=== PATIENT | male | born 1935 | race Caucasian/White ===

== ENCOUNTER → 2024-12-29 09:05 | Outpatient (REF) | payer MEDICARE, SELFPAY ==
[2024-12-29 10:00] LABS: Hematocrit 39.7 % (39.0-52.0); Hemoglobin 13.1 g/dL (13.0-18.0); Mean Corp Hgb Conc. 33.0 g/dL (33.0-37.0); Mean Corpuscular Volume 89.6 fL (80.0-94.0); Nucleated Red Blood Cells % 0 % (-); Platelet Count 220 10^3/uL (130-400); Red Cell Dist. Width 15.1 % (11.5-14.5)
[2024-12-29 10:17] LABS: Urine Character Clear (Clear)
[2024-12-29 10:35] LABS: ALT (SGPT) 14 U/L (0-50); AST (SGOT) 21 U/L (17-59); Albumin 4.5 g/dl (3.5-5.0); Alkaline Phosphatase 82 U/L (38-126); Blood Urea Nitrogen 18 mg/dl (9-20); Calcium 9.4 mg/dl (8.4-10.2); Carbon Dioxide 28 mmol/L (22-30); Chloride 107 mmol/L (98-107); Glucose 86 mg/dl (70-99); HDL Cholesterol 67 mg/dl; LDL Cholesterol, Calculated 51 mg/dl; Potassium 4.5 mmol/L (3.5-5.1); Sodium 142 mmol/L (135-145); Total Protein 7.9 g/dl (6.3-8.2); Very Low Density Lipoprotein 16 mg/dl (0-30); eGFR > 60.00
[2024-12-29 10:36] LABS: C-Reactive Protein 10.50 mg/L (0.0-10.00)
[2024-12-29 11:07] LABS: TSH 1.45 uIU/ml (0.47-4.68)
[2024-12-29 11:47] LABS: Urine Squamous Cell 16-20 /LPF (Few)
[2024-12-29 11:49] LABS: Urine White Cell 0-2 /HPF (0-5)
== END ==
LOC: REG 09:05
PROVIDERS: ATTENDING PHYSICIAN Internal Medicine
DX: E78.2 Mixed hyperlipidemia (principal); K57.90 Diverticulosis of intestine, part unspecified, without perforation or abscess without bleeding; R63.4 Abnormal weight loss; Z00.00 Encounter for general adult medical examination without abnormal findings; K12.0 Recurrent oral aphthae; R19.7 Diarrhea, unspecified
CPT/HCPCS: 36415; 80053; 80061; 81003; 81015; 84443; 85025; 86140

== ENCOUNTER → 2025-01-12 06:49 | Outpatient (REF) | payer MEDICARE, SELFPAY ==
[2025-01-12 07:43] LABS: Urine Character Clear (Clear)
== END ==
LOC: REG 06:49
PROVIDERS: ATTENDING PHYSICIAN Internal Medicine
DX: R63.4 Abnormal weight loss (principal); K57.90 Diverticulosis of intestine, part unspecified, without perforation or abscess without bleeding; E78.2 Mixed hyperlipidemia
CPT/HCPCS: 81003

== ENCOUNTER 2025-03-14 08:47 | Emergency (ER) | payer MEDICARE, SELFPAY ==
[2025-03-14 08:50] VITALS: BP 150/93
[2025-03-14 09:26] VITALS: BMI 17.4
--- NOTE | 2025-03-14 09:34 | EDRN ---
Dr. Garvin in room w/ pt at this time.
--- NOTE | 2025-03-14 09:47 | ED.GENMED ---
History of Present Illness
General
Chief Complaint: Fall
Source: patient
Time Seen by Provider: 03/14/25 09:06
History of Present Illness
History of Present Illness:
89-year-old male presents to the emergency room complaining of pain particular in the right knee after a fall. Patient had a fall 2 days ago. He moved into a new home which is a refurbished barn. He was unaware that he was taking a step down that
was quite significant and ended up losing his balance and falling. He has pain on the entire right side of his body which reminds him of when he would ski and have a white out. However his right knee is the primary area of concern today because it
is swollen and he cannot weight-bear without significant pain. He did not have any loss of consciousness in the fall. He does not have a headache at this point.
Past History
Past History
ED Past Medical History: Hypercholesterolemia
ED Past Surgical History: Other (Hernia repair)
Social History
Tobacco: Non-smoker
Alcohol: None
Personal:
Living: with family
Employment: Retired
Phy Exam
Physical Exam
Physical Exam:
General: Awake, Alert, Oriented X3. No acute distress.
Vitals: unremarkable
Head: Atraumatic
Eyes: Pupils equal, EOMI
Throat: Airway intact, no exudates
Neck: Trachea midline
Lungs: Clear and equal b/l
Heart: Regular rate, no murmurs
Abd: Soft, Nontender, No pulsatile mass
Neuro: No focal deficits
Skin: Warm, dry, no rash
Extremities: pulses equal b/l, there is significant swelling and ecchymosis of the right knee particular proximally. There is diffuse tenderness to palpation.
Course
Orders/Labs/Results
Orders:
Orders
03/14/25 09:38
Acetaminophen [Tylenol] 1,000 mg PO NOW STA
Knee, Right 4 or More Views [CR Knee- Right 4 Or More View*] Urgent
Comment:
Reason For Exam: pain/swelling after a fall
03/14/25 11:30
Knee Immobilizer Right-Treatme ONCE
Physical Therapy Consult [Pt Eval And Treat] Urgent
Treatment: walker training
Activity Level: As Tolerated
Vital Signs
Initial and Last Documented VS:
Initial Vital Signs
Temp Pulse Resp BP Pulse Ox
98.8 F 110 18 150/93 97
03/14/25 08:50 03/14/25 08:50 03/14/25 08:50 03/14/25 08:50 03/14/25 08:50
Last Documented Vital Signs
Temp Pulse Resp BP Pulse Ox
98.8 F 103 16 162/80 99
03/14/25 08:50 03/14/25 11:20 03/14/25 11:20 03/14/25 11:20 03/14/25 11:20
MDM/Problems Addressed
Differential Diagnosis Includes:
Tibial plateau fracture, patella fracture, knee strain
MDM/Problems Addressed:
Patient presents with right knee pain after a fall. Patient having significant pain with weightbearing. Imaging shows no acute fracture. Patient concerned about the amount of pain. Perform a knee immobilizer. Attempted to aspirate the knee just
a trace amount of fluid recovered. Patient actually feeling much better with a knee immobilizer. Physical therapy was consulted to teach him how to use a walker but he actually does not need the walker.
*Radiology
Radiology exam reviewed: preliminary read by ED provider (No acute fracture on my review of the x-ray)
*Pulse Oximetry
SaO2: 97
Oxygen Mode of Delivery: Room air
Patient hypoxic: no
*Critical Care Note
Total Time (30-74mins, 75-104mins- exclusive of procedures): Not Applicable
ED Attending Note
-
Portions of this chart may have been created with voice recognition software.� Occasional wrong word or��sound alike� substitutions may have occurred due to the inherent limitations of voice recognition software.
Discharge Plan
Departure
Patient Disposition: Home (Routine Discharge)
Date of Disposition: 03/14/25
Time of Disposition: 12:14
Patient with high blood pressure during this ER visit?: No
Condition: Good
Discharge Problem:
Knee contusion
Instructions: Knee pain - ED (DC), BLOOD PRESSURE
Prescriptions:
No Action
rosuvastatin [Crestor] 20 MG tablet
20 mg PO DAILY
acetaminophen 325 mg Tablet
650 mg PO Q4HPRN PRN (Reason: Mild Pain / Temp > 101) Qty: 60 0RF
loperamide 2 mg Capsule
2 mg PO Q4HPRN PRN (Reason: diarrhea) Qty: 20 0RF
amoxicillin-pot clavulanate 875-125 mg tablet
1 tab PO Q12H 8 Days Qty: 16 0RF
Referrals:
Tawanda Chaudhary MD [Family Provider, Internal Medicine]
Jose M Lincoln MD [Active, Orthopedics]
Interventions
Interventions:
*Risk Screen - Suicide Last Done: 03/14/25 08:52
*General Assessment Last Done: 03/14/25 08:52
*Neglect/Abuse Screening Last Done: 03/14/25 08:52
*ED- Fall Risk Assessment Last Done: 03/14/25 09:30
*ED COVID-19 Vaccine History Last Done: 03/14/25 08:52
*Nursing Disposition Last Done: 03/14/25 12:30
ED-Musculoskeletal Assessment Last Done: 03/14/25 09:30
ED- Neurological Assessment Last Done: 03/14/25 09:30
ED-Skin Assessment Last Done: 03/14/25 09:30
Discharge Date and Time
Discharge Date/Time: 03/14/25 12:30
Print Language: CHINESE
[2025-03-14] MEDS: TYLENOL 1000 MG PO (10:13)
[2025-03-14 10:16] VITALS: BP 147/77
--- NOTE | 2025-03-14 11:00 | EDRN ---
Dr. Garvin in room w/ pt at this time.
[2025-03-14 11:20] VITALS: BP 162/80
--- NOTE | 2025-03-14 11:23 | EDRN ---
Dr. Garvin setting up to drain R knee at this time.
--- NOTE | 2025-03-14 12:10 | EDRN ---
Knee immobilizer placed at this time by Hannah MAO PCT and pt was very happy as could ambulate w/ immobilizer in place.
--- NOTE | 2025-03-14 12:17 | EDRN ---
Pt was in and note states pt able to ambulate and very satisfied w/ knee immobilitzer. Rollator walker tried though pt did not want it. Pt left w/ knee immoblizer in place at discharge.
== END 2025-03-14 12:30 | disposition home or self-care (01) ==
LOC: EMR 08:47
PROVIDERS: EMERGENCY PHYSICIAN Emergency Medicine; FAMILY PHYSICIAN Internal Medicine
DX: S80.01XA Contusion of right knee, initial encounter (principal); E78.00 Pure hypercholesterolemia, unspecified; W01.0XXA Fall on same level from slipping, tripping and stumbling without subsequent striking against object, initial encounter; Y92.009 Unspecified place in unspecified non-institutional (private) residence as the place of occurrence of the external cause
CPT/HCPCS: 99283; 29505; 73564